=== PATIENT | female | born 1985 | race Caucasian/White ===

== ENCOUNTER 2021-06-19 14:31 | Outpatient (CLI) | payer BC, SELFPAY ==
--- NOTE | ~2021-06-19 | MR_ITS ---
EXAMINATION: MR brain IAC wo con DATE: 06/19/2021 13:39 INDICATION: Neurofibromatosis, unspecified. Dizziness. Right sided hearing loss. TECHNIQUE: Magnetic resonance imaging (MRI) of the brain, brainstem, and internal auditory canals was performed without intravenous contrast. Sequences included sagittal and axial T1-weighted FSE, axial diffusion-weighted FS EPI, axial T2*-weighted GRE, axial T2-weighted FLAIR Propeller, axial T2-weigh laura Propeller, small [id number] coronal FIESTA, small pradg-wp-cveu coronal T1-weighted FSE, and s mall rhfpg-[id number]-immy axial T1-weighted SPGR. Apparent diffusion coefficient (ADC) maps were created. COMPARISON: None. 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 There is no intracranial hemorrhage, ac jeovany infarction, or abnormal intracranial mass lesion. The ventricles are normal in size. The orbits a re normal. The paranasal sinuses are clear. The internal auditory canals and inner ears are normal. T he mastoid air cells are normal. There is thickening of the pinna on the right. There is wall thicken ing of right external auditory canal. 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 Right midd le ear is not well evaluated by MRI. IMPRESSION: 1. Normal brain. 2. Thickening of the pinna on the right, wall thickening of right external auditory canal, and occlus ion of right external auditory canal. Correlate with physical exam. Consider correlation with tempora l bone CT. Reviewed, dictated and finalized at location A. IMPRESSION: 1. Normal brain. 2. Thickening of the pinna on the right, wall thickening of right external enriqueta tory canal, and occlusion of right external auditory canal. Correlate with phys ical exam. Consider correlation with temporal bone CT.
[2021-06-19 15:34] LABS: Basophils Percent Auto 0.5 % (0.2-1.2); Eosinophils Absolute Auto 0.1 K/mm3 (0-0.3); Eosinophils Percent Auto 0.7 % (0-4.4); Hematocrit 32.1 % (37.0-47.0); Hemoglobin 9.6 g/dL (12.0-15.0); Immature Granulocyte Absolute 0.04 K/mm3 (0.00-0.031); Immature Granulocyte Percent A 0.5 % (0-0.5); Lymphocytes Absolute Auto 1.38 K/mm3 (0.9-3.2); Lymphocytes Percent Auto 17.1 % (18.3-44.2); Mean Corpuscular HGB Conc 29.9 g/dl (32-36); Mean Corpuscular Hemoglobin 24.2 pg (26-34); Mean Corpuscular Volume 81.1 fl (80-100); Mean Platelet Volume 10.2 fl (7.4-10.4); Monocytes Absolute Auto 0.7 K/mm3 (0.1-0.6); Neutrophils Absolute Auto 5.8 K/mm3 (1.3-6.7); Neutrophils Percent Auto 72.2 % (45.5-73.1); Platelet Count Result 340 k/mm3 (150-375); Red Blood Count 3.96 M/mm3 (4.2-5.4); Red Cell Distribution Width 18.8 % (11.5-14.5); White Blood Count 8.1 K/mm3 (4.5-10.0)
[2021-06-19 15:46] LABS: Alanine Aminotransferase 10 U/L (4-35); Albumin Level 4.2 g/dL (3.5-5.1); Alkaline Phosphatase 119 U/L (38-126); Anion Gap 9 mmol/L (8-16); Aspartate Amino Transferase 17 U/L (14-36); Bilirubin,Total 0.3 mg/dL (0.2-1.3); Blood Urea Nitrogen 7 mg/dL (7-17); Carbon Dioxide 28 mmol/L (22-30); Chloride 105 mmol/L (98-107); Estimated Glomerular Filt Rate > 60; Glucose 100 mg/dL (65-110); Potassium 4.5 mmol/L (3.4-5.0); Sodium 142 mmol/L (137-145)
== END 2021-06-19 14:32 | disposition home or self-care (01) ==
PROVIDERS: Visit Provider Psychiatry & Neurology Neurology
DX: Q85.00 Neurofibromatosis, unspecified (principal); R56.9 Unspecified convulsions; Z79.899 Other long term (current) drug therapy
CPT/HCPCS: 36415; 70551; 80053; 85025

== ENCOUNTER 2025-04-07 13:10 | Outpatient (CLI) | payer MEDICARE, SELFPAY ==
--- OUTSIDE RECORDS SUMMARY | 2025-04-07 13:27 | XMS_ITS | Data Portability ---
Author Organization [facility] Address [address] [place] [address] Assessment No assessment recorded. Plan of Treatment Reminders Order Date Submit Date Provider Last Modified By Organization Details Last Modified Time Details Appointments ANY 15 2024 09:30A Claudette Olivier MD Not available Not available Not available Lab CBC 2024 025 BARBY CRAWLEY, Sukhwinder alin Walker, [facility] [address], [place], [address], 04/07/2025 06:18:45 BMP, serum or plasma 2024 025 Sukhwinder LAMBERT [facility], [facility] [address], [place], [address], 04/07/2025 06:18:44 vitamin B12 + folate, serum or blood 2023 024 BARBY CRAWLEY, Sukhwinder alin Walker, [facility] [address], [place], [address], 03/03/2024 08:30:30 CBC 2023 024 Sukhwinder LAMBERT alin Walker, [facility] [address], [place], [address], 03/03/2024 09:15:45 thiamine, QN, blood 2023 024 Sukhwinder LAMBERT, [address], [place], [address], 03/05/2024 11:14:36 CMP, serum or plasma 2023 024 [facility], [address], [address], [place], [address], 03/03/2024 09:15:44 iron + TIBC + ferritin, serum 2023 024 [facility], [address] [facility] [address], [address], [place], [address], 03/03/2024 08:30:31 Referral None recorded. Procedures None recorded. Surgeries None recorded. Imaging MAMMO, screening , bilateral 2022 023 [facility] ([facility]), [address] [place], [address], 07/14/2023 16:31:00 Medication Orders cetirizin e 10 mg tablet [address] [id number], [address], [place], [id number], 11/18/2024 17:11:04 ferrous sulfate 325 mg (65 mg iron) tablet 2022 023 [email or web address] [facility] #[id number], [address], [place], [id number], 11/18/2024 17:08:36 cetirizin e 10 mg tablet 2022 023 [facility] #[id number], [address], [place], [id number], 06/19/2023 15:19:29 folic acid 1 mg tablet 2022 023 [email or web address] [facility] #44949, [address] [facility] [place], [id number], 06/24/2024 09:28:16 Patient TargetsNo targets recorded. Patient Instructions Encounter Date Encounter Id Patient Instructions Last Modified By Organization Details Last Modified Time 06/19/2023 [id number] mammogram: about this test Not available 06/19/2023 15:09:39 breast self-exam : care instructions Not available 06/19/2023 15:09:39 learning about breast cancer screening Not available 06/19/2023 15:09:39 A healthy lifestyle: care instructions Not available 06/19/2023 16:27:39 03/02/2024 [id number] epilepsy: care instructions [email or web address] Not available 03/02/2024 12:20:36 anemia: care instructions Not available 03/02/2024 12:20:36 05/25/2024 [id number] epilepsy: care instructions [email or web address] Not available 05/25/2024 13:14:18 anemia: care instructions [email or web address] Not available 05/25/2024 13:14:18 11/18/2024 [id number] A healthy lifestyle: care instructions Not available 11/20/2024 17:56:45 03/14/2025 [id number] epilepsy: care instructions [email or web address] Not available 03/14/2025 17:52:39 anemia: care instructions [email or web address] Not available 03/14/2025 17:52:39 Reason for Referral None Reported. Results Created Date Observation Date Name Description Value Unit Range Abnormal Flag Note LastModifiedBy Organization Detail LastModifiedTime 03/02/2003/03/2024 VITAM IN B12 AND FOLAT E vitamin B12 415 pg/mL 232-12 45 Not Available [facility] ([facility]) [address] [facility], [place], [address], 03/03/2024 08:30:30 03/02/20 24 03/03/2024 VITAM IN B12 AND FOLAT E folate (folic acid), serum >20.0 NG/mL >3.0 A serum folat e joel ntrat ion of less than 3.1 ng/mL is consi dered to repre sent clini margoth defic iency . Not Available [facility] ([facility]) [address] [place], [address], 03/03/2024 08:30:30 03/02/20 24 03/03/2024 FE+TI BC+FE R iron bind.cap.(TI BC) 185 ug/dL 250-45 0 below low normal Not Available [facility] ([facility]) [address] [place], [address], 03/03/2024 08:30:31 03/02/20 24 03/03/2024 FE+TI BC+FE R UIBC 57 ug/dL 131-42 5 below low normal Not Available [facility] ([facility]) [address] [place], [address], 03/03/2024 08:30:31 03/02/20 24 03/03/2024 FE+TI BC+FE R iron 128 ug/dL 27-159 Not Available [facility] ([facility]) [address] [place], [address], 03/03/2024 08:30:31 03/02/20 24 03/03/2024 FE+TI BC+FE R iron saturation 69 % 15-55 above high normal Not Available [facility] ([facility]) [address] [place], [address], 03/03/2024 08:30:31 03/02/20 24 03/03/2024 FE+TI BC+FE R ferritin 92 NG/mL 15-150 Not Available [facility] ([facility]) [address] [place], [address], 03/03/2024 08:30:31 03/02/20 24 03/03/2024 COMP. METAB OLIC PANEL (14) glucose 70 mg/dL 70-99 Not Available [facility] ([facility]) [address] [place], [address], 03/03/2024 09:15:44 03/02/20 24 03/03/2024 COMP. METAB OLIC PANEL (14) BUN 8 mg/dL 6-24 Not Available [facility] ([facility]) [address] [place], [address], 03/03/2024 09:15:44 03/02/20 24 03/03/2024 COMP. METAB OLIC PANEL (14) creatinine 0.62 mg/dL 0.57-1 .00 Not Available [facility] ([facility]) [address] [place], [address], 03/03/2024 09:15:44 03/02/20 24 03/03/2024 COMP. METAB OLIC PANEL (14) eGFR 115 mL/mi n/1.7 3 >59 Not Available [facility] ([facility]) [address] [place], [address], 03/03/2024 09:15:44 03/02/20 24 03/03/2024 COMP. METAB OLIC PANEL (14) BUN/creatini ne ratio 13 9-23 Not Available [facility] ([facility]) [address] [place], [address], 03/03/2024 09:15:44 03/02/20 24 03/03/2024 COMP. METAB OLIC PANEL (14) sodium 138 mmol/ L 134-14 4 Not Available [facility] ([facility]) [address] [place], [address], 03/03/2024 09:15:44 03/02/20 24 03/03/2024 COMP. METAB OLIC PANEL (14) potassium 4.2 mmol/ L 3.5-5. 2 Not Available [facility] ([facility]) [address] [place], [address], 03/03/2024 09:15:44 03/02/20 24 03/03/2024 COMP. METAB OLIC PANEL (14) chloride 103 mmol/ L 96-106 Not Available [facility] ([facility]) [address] [facility] [place], [address], 03/03/2024 09:15:44 03/02/20 24 03/03/2024 COMP. METAB OLIC PANEL (14) carbon dioxide, total 24 mmol/ L 20-29 Not Available [facility] ([facility]) [address] [facility] [place], [address], 03/03/2024 09:15:44 03/02/20 24 03/03/2024 COMP. METAB OLIC PANEL (14) calcium 9.0 mg/dL 8.7-10 .2 Not Available [facility] ([facility]) [address] [place], [address], 03/03/2024 09:15:44 03/02/20 24 03/03/2024 COMP. METAB OLIC PANEL (14) protein, total 7.1 g/dL 6.0-8. 5 Not Available [facility] ([facility]) [address] [facility] [place], [address], 03/03/2024 09:15:44 03/02/20 24 03/03/2024 COMP. METAB OLIC PANEL (14) albumin 3.8 g/dL 3.9-4. 9 below low normal Not Available [facility] ([facility]) [address] [facility] [place], [address], 03/03/2024 09:15:44 03/02/20 24 03/03/2024 COMP. METAB OLIC PANEL (14) globulin, total 3.3 g/dL 1.5-4. 5 Not Available [facility] ([facility]) [address] [facility] [place], [address], 03/03/2024 09:15:44 03/02/20 24 03/03/2024 COMP. METAB OLIC PANEL (14) A/G ratio 1.2 1.2-2. 2 Not Available [facility] ([facility]) [address] [facility] [place], [address], 03/03/2024 09:15:44 03/02/20 24 03/03/2024 COMP. METAB OLIC PANEL (14) bilirubin, total 0.3 mg/dL 0.0-1. 2 Not Available [facility] ([facility]) [address] [facility] [place], [address], 03/03/2024 09:15:44 03/02/20 24 03/03/2024 COMP. METAB OLIC PANEL (14) alkaline phosphatase 147 IU/L 44-121 above high normal Not Available [facility] ([facility]) [address] [facility], [place], [address], 03/03/2024 09:15:44 03/02/20 24 03/03/2024 COMP. METAB OLIC PANEL (14) AST (SGOT) 11 IU/L 0-40 Not Available [facility] ([facility]) [address] [facility] [place], [address], 03/03/2024 09:15:44 03/02/20 24 03/03/2024 COMP. METAB OLIC PANEL (14) ALT (SGPT) 7 IU/L 0-32 Not Available [facility] ([facility]) [address] [facility] [place], [address], 03/03/2024 09:15:44 03/02/20 24 03/03/2024 CBC, PLATE LET, NO DIFFE RENTI AL WBC 6.9 x10e3 /uL 3.4-10 .8 Not Available [facility] ([facility]) [address] [facility] [place], [address], 03/03/2024 09:15:45 03/02/20 24 03/03/2024 CBC, PLATE LET, NO DIFFE RENTI AL RBC 4.26 x10e6 /uL 3.77-5 .28 Not Available [facility] ([facility]) [address] [facility], [place], [address], 03/03/2024 09:15:45 03/02/2003/03/2024 CBC, PLATE LET, NO DIFFE RENTI AL hemoglobin 13.2 g/dL 11.1-1 5.9 Not Available [facility] ([facility]) [address] [facility], [place], [address], 03/03/2024 09:15:45 03/02/20 24 03/03/2024 CBC, PLATE LET, NO DIFFE RENTI AL hematocrit 41.1 % 34.0-4 6.6 Not Available [facility] ([facility]) [address] [facility], [place], [address], 03/03/2024 09:15:45 03/02/2003/03/2024 CBC, PLATE LET, NO DIFFE RENTI AL MCV 97 fL 79-97 Not Available [facility] ([facility]) [address] [facility], [place], [address], 03/03/2024 09:15:45 03/02/2003/03/2024 CBC, PLATE LET, NO DIFFE RENTI AL MCH 31.0 pg 26.6-3 3.0 Not Available [facility] ([facility]) [address] [facility], [place], [address], 03/03/2024 09:15:45 03/02/2003/03/2024 CBC, PLATE LET, NO DIFFE RENTI AL MCHC 32.1 g/dL 31.5-3 5.7 Not Available [facility] ([facility]) [address] [facility], [place], [address], 03/03/2024 09:15:45 03/02/20 24 03/03/2024 CBC, PLATE LET, NO DIFFE RENTI AL RDW 11.7 % 11.7-1 5.4 Not Available [facility] ([facility]) [address] [facility], [place], [address], 03/03/2024 09:15:45 03/02/20 24 03/03/2024 CBC, PLATE LET, NO DIFFE RENTI AL platelets 243 x10e3 /uL 150-45 0 Not Available [facility] ([facility]) [address] [facility], [place], [address], 03/03/2024 09:15:45 03/02/20 24 03/05/2024 VITAM IN B1 (THIA MINE) , BLOOD vit. B1, whole blood 95.4 nmol/ L 66.5-2 00.0 Not Available [facility] ([facility]) [address] [facility], [place], [address], 03/05/2024 11:14:35 07/14/20 23 07/14/2023 MAMMO , scree rebel, bilat eral No observ ation record ed. [facility] [address] [place], [address], 08/13/2023 15:59:08 09/02/20 23 09/02/2023 US, johnny t, bilat eral No observ ation record ed. [facility] [address] [place], [address], 09/08/2023 12:16:25 09/02/20 23 09/02/2023 MAMMO , diagn ostic , digit al, bilat eral No observ ation record ed. [facility] [address] [place], [address], 09/08/2023 12:16:26 Result Notes None recorded. 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 Liza Reynolds PA-C Attn: Accounting ,[address] [place], [address] , [place] [facility] 8 16:09:32 Seizure disorder 981384147 Active 1985 Liza Reynolds PA-C Attn: Accounting ,[address] [facility], [place], [address] , [place] [facility] 8 16:09:07 Iron deficienc y 32787838 Active 2016 Liza Reynolds PA-C Attn: Accounting ,[address] [facility], [place], [address] , [place] [facility] 8 16:10:12 Tonic-mat samantha status epileptic us 40547588 Active 2017 Liza Reynolds PA-C Attn: Accounting ,[address] [facility], [place], [address] , [place] [facility] 8 16:43:36 Body mass index 25-29 - overweigh t 373041163 Active 2017 Liza Reynolds PA-C Attn: Accounting ,[address] [facility], [place], [address] , [place] [facility] 8 09:09:21 Screening for malignant neoplasm of cervix Active 2021 Previous pap was traumatic for pt, and endorses to not have another one performed. Pt denies h/o of sexual activity. 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 Procedures Surgical History Date Name Laterality Status Provider Name and Address Organization Details Recorded Time 11/25/2017 Date of Last Pap Smear completed Fatoumata Moreno MA MD - [facility] 12/26/2017 15:06:46 Other completed Mayrakaushik Andrade MA MD - [facility] 10/23/2017 15:52:56 Imaging Results None recorded. Procedure Notes None recorded. Medical Equipment None Reported. Allergies Allergen ID Allergen Name Allergen Category Reaction Reaction Severity Criticality Documentation Date Start Date Code Code System Note Provider Name and Address Organization Details Recorded Time 286337 barley extract food hives Not available Not available 10/23/2017 98310 66 RxNorm As Achil d age 3 Fatoumata Moreno MA null, MD - [facility] 8 15:03:30 Medications Name Sig Start Date Stop Date Status Note LastModified by Organization Details LastModified Time cetirizine 10 mg tablet TAKE 1 TABLET EVERY DAY BY MOUTH DIRECTED. active Not Available Not Available No t Available ibuprofen 800 mg tablet TAKE 1 TABLET BY MOUTH EVERY 8 HOURS active Not Available Not Available No t Available levetiracet am 500 mg tablet TAKE 1 TABLET BY MOUTH TWICE DAILY 06/19 completed Not Available Not Available Not Available sulfamethox azole 800 mg-trimetho prim 160 mg tablet 11/04 completed Not Available Not Available Not Available carbamazepi ne 200 mg tablet TAKE 1 TABLET BY MOUTH EVERY 12 HOURS active Not Available Not Available No t Available levetiracet am 250 mg tablet Take 2 tablets twice a day by oral route. 02/25 completed Not Available Not Available Not Available folic acid 1 mg tablet TAKE 1 TABLET BY MOUTH EVERY DAY active Not Available Not Available No t Available levetiracet am 750 mg tablet TAKE 1 TABLET BY MOUTH TWICE DAILY active Not Available Not Available No t Available ergocalcife rol (vitamin D2) 1,250 mcg (50,000 unit) capsule 09/10 completed Not Available Not Available Not Available lorazepam 1 mg tablet Take 1 tablet as needed by oral route. 04/30 completed Not Available Not Available Not Available Vitamin B-12 1,000 mcg tablet Take 1 tablet every day by oral route. 2023 active Not Available Not Available Not Avai lable amoxicillin 500 mg-potvickyiu m clavulanate 125 mg tablet TAKE 1 TABLET BY MOUTH EVERY 8 HOURS 11/18 completed Not Available Not Available Not Available Centrum 1 chewable tablet BID 11/04 completed OTC Not Available Not Available Not Available levetiracet am 500mg 10/23 completed Not Available Not Available Not Available FeroSul 325 mg (65 mg iron) tablet TAKE 1 TABLET BY MOUTH ONCE DAILY 11/18 completed Not Available Not Available Not Available Afluria Quad (PF) 60 mcg (15 mcg x 4)/0.5 mL IM syringe 11/04 completed Not Available Not Available Not Available Fluarix Quad (PF) 60 mcg (15 mcg x 4)/0.5 mL IM syringe 11/04 completed Not Available Not Available Not Available Vitals Date Recorded Body height Body mass index (BMI) Body weight Heart rate Oxygen saturation Oxygen saturation in Arterial blood by Pulse oximetry Systolic And Diastolic Provider Name and Address Organization Details Last Updated DateTime 5 154.94 cm 25.3 kg/m2 04688.3 8 g 75 /min 99 % 99 % 108/73 mm[Hg] Citlaly Mari MA [facility] 5 17:01:23 Date Recorded Body height Body mass index (BMI) Body weight Heart rate Oxygen saturation Oxygen saturation in Arterial blood by Pulse oximetry Systolic And Diastolic Provider Name and Address Organization Details Last Updated DateTime 4 154.94 cm 27.2 kg/m2 75332.3 g 90 /min 98 % 98 % 98/66 mm[Hg] Melissa Turner MA MD - [facility] 4 11:26:47 Date Recorded Body height Body mass index (BMI) Body weight Body temperature Heart rate Oxygen saturation Oxygen saturation in Arterial blood by Pulse oximetry Systolic And Diastolic Provider Name and Address Organization Details Last Updated DateTime 5 154.94 cm 25.5 kg/m2 93763.1 1 g 97.5 [degF] 80 /min 98 % 98 % 95/66 mm[Hg] Angelina Castano MD - [facility] 5 17:35:53 Date Recorded Body height Body mass index (BMI) Body weight Oxygen saturation Oxygen saturation in Arterial blood by Pulse oximetry Heart rate Systolic And Diastolic Provider Name and Address Organization Details Last Updated DateTime 4 154.94 cm 26.5 kg/m2 23332.9 3 g 98 % 98 % 72 /min 108/74 mm[Hg] Melissa Turner MA [facility] 4 12:46:58 Date Recorded Body height Body mass index (BMI) Body weight Body temperature Oxygen saturation Oxygen saturation in Arterial blood by Pulse oximetry Heart rate Systolic And Diastolic Provider Name and Address Organization Details Last Updated DateTime 3 154.94 cm 25.8 kg/m2 86465.4 4 g 98.3 [degF] 97 % 97 % 91 /min 116/68 mm[Hg] Maia Carlson MA MD - [facility] 3 14:50:26 Social History Question Answer Notes LastModified by Organizat ion Details LastModified Time Tobacco Smoking Status Never Smoker Mayra Andrade MA null, MD - [facility] 10/23/2017 15:49:48 Do You Have An Advance Directive? No Information not available 10/23/2017 What Is Your Level Of Caffeine Consumption? Moderate Information not available 10/23/2017 How Much Tobacco Do You Chew? None Information not available 10/23/2017 In The 14 Days Before Symptom Onset, Have You Had Close Contact With A Laboratory-confir med COVID-19 While That Case Was Ill? No Information not available 04/30/2022 In The 14 Days Before Symptom Onset, Have You Had Close Contact With A Person Who Is Under Investigation For COVID-19 While That Person Was Ill? No Information not available 04/30/2022 Have You Been To An Area Known To Be High Risk For COVID-19? No Information not available 04/30/2022 What Type Of Diet Are You Following? REGULAR Information not available 10/23/2017 Education 12 Graduate Information no t available 10/23/2017 Are There Any Guns Present In Your Home? No Information not available 10/23/2017 Hard Of Hearing Or Deaf In One Or Both Ears? Yes Information not available 10/23/2017 Legally Blind In One Or Both Eyes? No Information no t available 10/23/2017 Live Alone Or With Others? With Others Information not available 10/23/2017 What Was The Date Of Your Most Recent Tobacco Screening? 03/14/2025 [email or web address] Information not available 03/14/2025 How Many Children Do You Have? 0 Information not available 10/23/2017 What Is Your Relationship Status? Single Information not available 04/30/2022 Seat Belts Used Routinely Yes Information not available 10/23/2017 Are You Sexually Active? No Information not available 10/23/2017 Smoke Alarm In Home Yes Information not available 10/23/2017 Do You Have Smoke And Carbon Monoxide Detectors In Your Home? Yes Information not available 04/30/2022 Are You Passively Exposed To Smoke? Yes Information no t available 10/23/2017 How Much Tobacco Do You Smoke? No Information not available 10/23/2017 General Stress Level Low Information not available 10/23/2017 Do You Use Sunscreen Routinely? Yes Information not available 10/23/2017 Has Tobacco Cessation Counseling Been Provided? No Information not available 04/30/2022 How Many Years Have You Smoked Tobacco? 0 Information not available 10/23/2017 Sex: Unknown Functional Status Question Answer Note LastModified by Organizat ion Details LastModified Time Do you use any illicit or recreational drugs? No Information not available 04/30/2022 Do you or have you ever used any other forms of tobacco or nicotine? No Information not available 04/30/2022 What is your level of alcohol consumption? None Information not available 10/23/2017 Are you currently employed? No Information not available 10/23/2017 Are you able to care for yourself? Yes Information n ot available 10/23/2017 What is your exercise level? Occasional Information not available 10/23/2017 Mental Status None recorded. Family History Relationship Description Onset Age of this Age Resolved Age Notes LastModified by Organization Details LastModified Time Maternal Grandmother Diabetes mellitus Not available 2017 15:47:38 Maternal Grandmother Malignant tumor of breast Not available 2017 15:47:57 Mother Diabetes mellitus Not available 2017 15:47:38 Mother Pulmonary emphysema Not available 2017 15:49:24 Mother Chronic obstructive pulmonary disease Not available 2017 15:49:33 Maternal Aunt Malignant tumor of breast Not available 2017 15:47:57 Maternal Aunt Diabetes mellitus Not available 2017 15:49:04 Paternal Grandfather Malignant tumor of colon Not available 2017 15:48:15 Paternal Grandfather Malignant neoplasm of lung Not available 2017 15:48:35 Paternal Grandfather Malignant neoplasm of liver Not available 2017 15:48:54 Medical History Condition Response Other N High Blood Pressure N Breast Cancer N Thyroid Problems N Kidney or Bladder Problems N GI Problems N Depression N Blood Clots N Lung Disease N Acne N Breast Problem N Eating Disorder N Anemia N Anesthesia Complications N Headaches/Migraines N Anxiety Disorder N Diabetes N Ovarian Cancer N Muscle, Joint, or Bone Problems N Blood Transfusions N Seizures/Epilepsy N Polyps N Infertility N Acid Reflux (GERD) N Cancer N Abuse/Domestic Violence N Asthma N Endometriosis N High Cholesterol N Hepatitis N Liver Disease N Heart Disease N Pre-Eclampsia N Osteoporosis N Gynecological History Statement/Question Response Abnormal Pap Yes Flow Moderate Date of LMP 06/13/2023 On BCP's at Conception? N STIs/STDs N HPV Vaccine N Duration of Flow (days) 5 Most Recent Mammogram Age at Menarche 9 Current Control Method None Sexually Active? N Menses Monthly Y Date of Last Pap Smear 11/25/2017 Sexual Problems? N LMP Approximate Desired Control Method None Obstetrics History GPAL:G 0 P 0 0 0 0 Immunizations Vaccine Type Date Status Note Provider Nam e and Address Organization Details Recorded Time Influenza, split virus, quadrivalent, preservative 8 completed Liza Reynolds PA-C Attn: Accounting,[address] [facility], [place], [address], [facility] 09/10/2018 14:34:40 SARS-COV-2 (COVID-19) vaccine, UNSPECIFIED 1 completed Maia Carlson MA null, MD - [facility] 06/19/2023 14:47:41 SARS-COV-2 (COVID-19) vaccine, UNSPECIFIED 1 completed Maia Carlson MA null, MD - [facility] 06/19/2023 14:47:50 Influenza, split virus, quadrivalent, PF 9 completed Not Available [facility] 03/14/2025 17:02:35 Influenza, MDCK, quadrivalent, PF 0 completed Not Available [facility] 03/14/2025 17:02:35 Influenza, split virus, quadrivalent, PF 2 completed Not Available [facility] 03/14/2025 17:02:35 Influenza, split virus, quadrivalent, preservative 3 completed DONELL REYEZ Attn: Accounting[address] [facility], [place], [address], [facility] 06/19/2023 16:31:31 Past Encounters Encounter ID Performer Location Encounter Start Date Encounter Closed Date Diagnosis/Indication Diagnosis SNOMED-CT Code Diagnosis ICD10 Code Diagnosis Note [id number] MD Michel Sams (Adult Med) [address] [place] [phone] 10/23/2017 15:15:34 10/23/2017 16:59:56 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 WIll refer to neurology once previous neurologis t notes are received Tonic-clon ic status epilepticus [id number] G40.301 WIll refer to neurology once previous neurologis t notes are received Will refill medication s until she can get into neurology Adult heal th examination [id number] Z00.01 Screening for disorder 813869320 Z13.9 [id number] MD Michel Sams (Adult Med) [address] [place] [address] [phone] 0 11/25/2017 09:10:20 11/25/2017 12:23:06 Gynecologic examination 34131359 Z01.411 Will try to send off sample - moderate to heavy on cycle Neurofibro matosis syndrome 13637891 Q85.00 Per sister, appointmen t not until 03/2018 - advised to contact their office to see if they can get in sooner, if needed, we can call to try to get her in sooner Patient went to ER 1 week ago d/t seizures - she was at her grandmothe r's and when she had a seizure her grandmothe r gave her one of her maintainan ce meds and not the Ativan, so she had a few more seizures and was taken to the ER - per sister, everything is fine now Will send for [facility] ER note [id number] MD Michel Yañez (OUTPATIENT PHLEBOTOMIST) [address] [place] [phone] 12/26/2017 14:49:45 12/30/2017 14:18:35 Gynecologic examination 42386199 Z01.411 Cervicovag inal cytology specimen unsatisfactory 904707931 R87.615 PAP done today. [id number] MD Michel Sams [facility] (Adult Med) [address] [place] [address] [phone] 02/25/2018 08:45:09 02/25/2018 10:22:54 Tonic-clonic status epilepticus 67717095 G40.301 Neurology appointmen t in 03/2018Wil l refill medication s until she can get into neurologyS he has one lorazepam left (takes when seizures are really bad) Body mass index 25-29 - overweight 638352821 Z68.25 Advised 30 minutes of exercise 5 days/week Advised to not drink her calories Advised 3 balanced meals/day with plenty of fruits and vegetables Iron deficiency 84616701 E61.1 taking iron tablets OTC [id number] MD Michel Sams (Adult Med) [address] [place] [address] [phone] 09/10/2018 14:04:08 09/11/2018 10:44:57 Tonic-clonic status epilepticus 62761663 G40.301 Neurology appointmen t in 03/2018Wil l refill medication s until she can get into neurologyS he has one lorazepam left (takes when seizures are really bad) 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 Q85.00 Per sister, appointmen t not until 03/2018 - advised to contact their office to see if they can get in sooner, if needed, we can call to try to get her in sooner Patient went to ER 1 week ago d/t seizures - she was at her grandmothe r's and when she had a seizure her grandmothe r gave her one of her maintainan ce meds and not the Ativan, so she had a few more seizures and was taken to the ER - per sister, everything is fine now Will send for [facility] ER note Allergic disposition 609 997983 T78.40XA [id number] DONELL REYEZ (Adult Med) [address] [place] [phone] 11/04/2019 09:20:43 11/05/2019 09:59:41 Poor oral hygiene 297795878 R46.89 Audra needs dental work completed but sister is afraid the extensive dental work needed may induce a seizure.- Advised her to discuss with Dr. Still and see what he thinks and for recommenda tions- Provided her paper showing dental clinics in the area Seizure disorder 4963704 02 G40.909 Hx of seizure disorder, follows with Dr. Still and gets all of her medication s from him.She has been on the same medication for many years.She still has seizures intermitte ntly, but seizures are usually partial seizures instead of grand-mal seizures.H as f/u appointmen t with Dr. Still in 4 days.- keep f/u appointmen t [id number] DONELL REYEZ (Adult Med) [address] [place] [address] [phone] 04/30/2022 12:15:11 05/01/2022 14:09:10 Seizure disorder 353592842 G40.909 Hx of seizure disorder, follows with Dr. Still and gets all of her medication s from him. She still has seizures intermitte ntly, but seizures are partial seizures instead of grand-mal seizures. Focal seizures commonly include lip smacking, repetitive movements, and inability to speak. Typically last 30secs-1mi n. No grand mal seizures in 3yrs. Takes Levetirace sanchez and Carbamazep ine. Recently [employer] is not covering visits w/ Dr. Still. Upcoming seizure medication refills on May 08, and concerned they won't be filled. Requesting to have medication s filled in case of the [employer] not covering it. -Order CBC, CMP, UA, and Carbamazep ine (total+justine e), given continued use of Carbamazep ine.-Fill Carbamazep ine in event they are not refilled by Dr. Still.-Ke ep future f/u appointmen ts w/ Dr. Still. Poor oral hygiene 763009 009 R46.89 Audra needs dental work completed but sister is afraid the extensive dental work needed may induce a seizure. - Advised her to discuss with Dr. Still and see what he thinks and for recommenda tions- Provided her paper showing dental clinics in the area Screening for malignant neoplasm of cervix 485056674 Z12.4 Pt endorses previous pap smear in 2018. Due this year for pap smear. Previous pap was traumatic for pt, and endorses to not have another one performed. Pt denies h/o of sexual activity. -Given previous traumatic experience , and low seizure threshold in times of stress, pap smear not needed at this time. Adult heal th examination 142157122 Z00.00 Pt presents on 04/30/22 to establish care. Physical exam appreciate s masses secondary to neurofibro matosis. 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 -Order HgbA1c, lipid panel, and TSH. [id number] DONELL REYEZ (Adult Med) [address] [place] [phone] 12/17/2022 14:33:48 12/20/2022 14:29:45 Anemia 294531701 D64.9 Recent labs showed VIDYA, Denies heavy menstrual cycles, hematochez ia, melena, and dysuria.St arted on oral iron every other day, tolerating well- plan to recheck levels today- c/w iron every other day for now Medication monitoring 39 9024044 Z51.81 Last set of labs showed elevated carbazmapi ne levels while taking 400 mg BID for yearsDecre ased dose to 200 mg BID and has been tolerating well the last few months- repeat levels today Folic acid deficiency 19 5974904 E53.8 Low with last set of labsTaking folic acid daily x 2 months now- repeat levels today, will call with results Cobalamin deficiency 190 817503 E53.8 Low with last set of labsTaking B12 daily x 2 months now- repeat levels today, will call with results Screening for malignant neoplasm of cervix 482991928 Z12.4 Pt endorses previous pap smear in 2018. Due this year for pap smear. Previous pap was traumatic for pt, and endorses to not have another one performed. Pt denies h/o of sexual activity. -Given previous traumatic experience , and low seizure threshold in times of stress, pap smear not needed at this time. Tonic-clon ic status epilepticus 08573068 G40.301 Hx of daily focal seizures, and last grand mal was 3yrs ago. Focal seizures occur as lip smacking, repetitive motion, and is not able to talk. Seizures only last 30secs-1mi n. Has had seizures since childhood. Only had focal seizures for around 10yrs. Triggers include, stress, excitement , loud music, and bright/fla shing lights.Was seeing neurologis t, but insurance stopped covering.T aking levetirace sanchez BID and carbamazep ine BID, no change in seizure activity since last visitGets new insurance 12/28/2022, will need a new neurology referral at that time- c/w medication - call office 12/28/2022 with insurance info so we can place new referral- will recheck carbamazep ine levels today Allergic disposition 609 733108 T78.40XA Requesting refills for seasonal allergies, last rx is now - refill, take as needed Neurofibro matosis syndrome 07661540 Q85.00 Physical exam appreciate s masses secondary to neurofibro matosis. 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 Depression screening 171 675559 Z13.31 PHQ 2/9 was negative in office today (0 out of 27) [id number] DONELL REYEZ (Adult Med) [address] [place] [phone] 06/19/2023 14:30:10 06/20/2023 11:31:13 Anemia 315415928 D64.9 Recent labs showed VIDYA, Denies heavy menstrual cycles, hematochez ia, melena, and dysuria.St pino on oral iron every other day, tolerating well - c/w iron every other day for now Folic acid deficiency 19 5726455 E53.8 Low with last set of labsTaking folic acid daily- c/w supplement s Cobalamin deficiency 190 492268 E53.8 Low with last set of labsTaking B12 daily x 2 months now- c/w supplement s Tonic-clon ic status epilepticus 47745604 G40.301 Hx of daily focal seizures, and last grand mal was 3yrs ago. Focal seizures occur as lip smacking, repetitive motion, and is not able to talk. Seizures only last 30secs-1mi n. Has had seizures since childhood. Only had focal seizures for around 10yrs. Triggers include, stress, excitement , loud music, and bright/fla shing lights.Sta rted seeing neurology last week, Keppra was increase to 750 mg BID to try and resolve the intermitte nt focal seizures.T aking levetirace sanchez BID and carbamazep ine BID - c/w medication and neurology Screening for malignant neoplasm of cervix 576011942 Z12.4 Pt endorses previous pap smear in 2018. Due this year for pap smear. Previous pap was traumatic for pt, and endorses to not have another one performed. Pt denies h/o of sexual activity. -Given previous traumatic experience , and low seizure threshold in times of stress, pap smear not needed at this time. Allergic disposition 609 682550 T78.40XA Requesting refills for seasonal allergies, last rx is now - refill, take as needed Neurofibro matosis syndrome 32587861 Q85.00 Physical exam appreciate s masses secondary to neurofibro matosis. 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 Administra tion of influenza vaccine 08786071 Z23 - administer ed today Overweight 704437081 E66 .3 Advised decreased portion sizes, good food choices, limited eating out or fast food and eliminate soda and juice from diet. Advised physical activity daily and offered encouragem ent to continue with positive changes made so far. [id number] MD Michel Carpenter (Adult Med) [address] [place] [address] [phone] 03/02/2024 11:18:38 03/03/2024 15:33:30 Seizure disorder 391995424 G40.909 F/u with neurology Neurofibro matosis syndrome 34441053 Q85.00 F/u with neurology Poor short -term memory 487306224 R41.3 F/u with neurology Anemia 799947823 D64.9 [id number] MD Michel Carpenter (Adult Med) [address] [place] [address] [phone] 0 05/25/2024 12:35:26 05/26/2024 15:26:11 Seizure disorder 070527525 G40.909 F/u with neurology Iron deficiency 08602663 E61.1 Corrected Poor short -term memory 343538376 R41.3 F/u with neurology Anemia 628937695 D64.9 Corrected [id number] MD Michel Carpenter (Adult Med) [address] [place] [address] [phone] 0 11/18/2024 16:49:21 11/19/2024 13:36:26 Overweight 733360225 E66.3 Allergic disposition 609 285235 T78.40XA [id number] MD Michel Carpenter (Adult Med) [address] [place] [address] [phone] 0 03/14/2025 17:01:43 03/15/2025 09:55:57 Anemia 121142385 D64.9 Corrected Seizure disorder 2718256 02 G40.909 F/u with neurology Neurofibro matosis syndrome 84524738 Q85.00 F/u with neurology Cobalamin deficiency 190 055500 E53.8 Health Concerns Section Related Observation LastModified by Organization Detai ls LastModified Time None Recorded Concern Status LastModified by Organization Details LastModified Time None Recorded Advance Directives Directive N: Payers Insurance Date Sequence Insurance Name Policy Number Policy Munoz Covered Member ID Munoz Member ID Guarantor Name 04/22/2022 SLIDING FEE SCHEDULE - DISCOUNT Audra Maxwell 11/04/2019 1 *SELF PAY* Ta sha Maxwell 03/14/2025 1 [place] Audra Maxwell [id number] Audra Maxwell 10/28/2019 SLIDING FEE SCHEDULE - DISCOUNT Audra Maxwell 03/14/2025 1 [facility] [facility] (MEDICAID REPLACEMENT - HMO) [id number] Audra Maxwell [id number] Audra Maxwell 03/14/2025 1 [place] Audra N Maxwell [id number] Audra Maxwell 03/14/2025 2 [place] WHEN MEDICARE OR MEDICARE REPLACEMENT PRIMARY) Audra Maxwell [id number] Audra Maxwell 03/14/2025 [place] [facility] Audra N Maxwell [id number] Audra Maxwell 03/14/2025 1 [facility] - DOS ON OR AFTER 21 (MEDICAID REPLACEMENT - HMO) Audra Maxwell [id number] Audra Maxwell 03/14/2025 1 [place] [facility] [place] Audra Maxwell [id number] Audra Maxwell Notes Date Note Type Note Provider Name and Address Organization Details Recorded Time 06/19/2023 text/html Pt presents toda y for f/u appointment. Started seeing neurology last week, Keppra was increase to 750 mg BID to try and resolve the intermittent focal seizures. Focal seizures are already infrequent before the dose change but they plan to monitor in the upcoming weeks for complete resolution. Completing labs for neurology next week. Triggers for focal seizures include, stress, excitement, loud music, and bright/flashing lights. Family history of breast cancer, no personal breast complaints today and no prior mammograms. Doing well on her vitamins and her supplements currently with no complaints today. Denies fever, chills, nausea, vomiting, headaches, chest pain, SOB, abdominal pain, diarrhea, constipation, or dysuria. DONELL REYEZ Attn: [address] [place], [address], [place] [facility] 06/19/2023 16:32:20 03/02/2024 text/html Here for medical clearance and also to be established with a new PCP. Has been under care of neurologist for several years. Pt accompanied by her sister Shruthi. Dwain De León MD Attn: [address] [facility], [place], [place], [address] [place] [address], [place] [facility] 03/02/2024 12:21:35 05/25/2024 text/html Here for routine f/u Dwain De León MD Attn: [address] [facility], [place], [place], [address] [place] [address], [place] [facility] 05/25/2024 13:14:45 11/18/2024 text/html Here for routine f/u. Has a runny nose Dwain De León MD Attn: [address] [facility], [place], [place], [address] [place] [address], [place] [facility] 11/18/2024 17:11:25 03/14/2025 text/html Here for f/u. No new complaints Here for routine f/u. Has a runny nose Dwain De León MD Attn: [address] [facility], [place], [place], [address] [place] [address], [place] [facility] 03/14/2025 17:53:24 OBGyn Episode No OBEpisode recorded.
[2025-04-07 13:59] LABS: Hematocrit 39.6 % (37.0-47.0); Hemoglobin 12.9 g/dL (12.0-15.0); Immature Granulocyte Percent A 0.5 % (0-0.5); Lymphocytes Absolute Auto 0.72 K/mm3 (0.9-3.2); Mean Corpuscular HGB Conc 32.6 g/dl (32-36); Mean Corpuscular Hemoglobin 31.1 pg (26-34); Mean Corpuscular Volume 95.4 fl (80-100); Nucleated Red Blood Cells Absolute Auto 0.000 K/mm3 (0.0-0.012); Nucleated Red Blood Cells Perc 0.0 % (0.0-0.2); Platelet Count Result 217 k/mm3 (150-375); Red Blood Count 4.15 M/mm3 (4.2-5.4); White Blood Count 3.9 K/mm3 (4.5-10.0)
[2025-04-07 14:11] LABS: Alanine Aminotransferase 12 U/L (6-35); Albumin Level 3.8 g/dL (3.5-5.1); Alkaline Phosphatase 84 U/L (38-126); Anion Gap 6 mmol/L (4-12); Aspartate Amino Transferase 20 U/L (14-36); Bilirubin,Total 0.2 mg/dL (0.2-1.3); Blood Urea Nitrogen 8 mg/dL (7-17); Calcium 9.0 mg/dL (8.4-10.2); Carbon Dioxide 27 mmol/L (22-30); Chloride 105 mmol/L (98-107); Estimated Glomerular Filt Rate > 60; Glucose 103 mg/dL (65-110); Potassium 4.4 mmol/L (3.4-5.0); Sodium 138 mmol/L (137-145); Total Protein 7.2 g/dL (6.3-8.2)
[2025-04-07 14:46] LABS: Thyroid Stimulating Hormone 0.905 uIU/mL (0.465-4.680)
[2025-04-07 15:22] LABS: Vitamin B12 246.0 pg/mL (239-931)
[2025-04-08 10:08] LABS: Carbamazepine (Tegretol) 8.8 ug/mL (4.0-12.0)
== END 2025-04-07 13:11 | disposition home or self-care (01) ==
PROVIDERS: Visit Provider Psychiatry & Neurology Neurology
DX: R56.9 Unspecified convulsions (principal); Z79.899 Other long term (current) drug therapy; Q85.00 Neurofibromatosis, unspecified
CPT/HCPCS: 36415; 80053; 80156; 80177; 82607; 82746; 84443; 85025